=== PATIENT | female | born 1985 | race Hispanic/Latino ===

== ENCOUNTER 2017-01-05 21:06 | Emergency (ER) | payer SELFPAY ==
[2017-01-05 22:29] LABS: Bilirubin Negative (Negative); Blood, Urine Negative (Negative); Glucose, Urine (Dipstick) Negative (Negative); Ketone, Urine Negative (Negative); Nitrite Negative (Negative); Protein, Urine (Dipstick) Negative (Neg-Trace)
[2017-01-05 22:32] LABS: Bacteria/HPF 1+ HPF (None Seen); Hyaline Casts/LPF 0-3 HYALINE CAST LPF (0-3 Hyaline); RBC/HPF 0-3 HPF (0-3)
[2017-01-05 22:42] LABS: #Lymphocytes 2.5 thou/uL (1.20-3.40); #Monocytes 0.9 thou/uL (0.11-0.59); #Neutrophils 13.2 thou/uL (1.40-6.50); %Basophils 0.3 % (0.0-1.0); %Eosinophils 0.3 % (0.0-10.0); %Lymphocytes 14.8 % (21.0-51.0); %Monocytes 5.1 % (0.0-10.0); Hematocrit 40.1 % (36.0-47.0); Mean Platelet Volume 7.2 fL (7.4-10.4); Red Blood Cell (RBC) Count 4.33 mill/uL (4.20-5.40); White Blood Cell (WBC) Count 16.6 thou/uL (4.8-10.8)
[2017-01-05 23:02] LABS: ALT (SGPT) 75 U/L (8-55); AST (SGOT) 186 U/L (5-34); Alkaline Phosphatase 121 U/L (40-150); Anion Gap 13 mmol/L (10-20); BUN (Urea Nitrogen) 9 mg/dL (7.0-18.7); Bilirubin, Total 0.9 mg/dL (0.2-1.2); Calc. Creatinine Clearance 0 mL/min (70-130); Calcium 9.9 mg/dL (7.8-10.44); Carbon Dioxide 28 mmol/L (22-29); Chloride 101 mmol/L (98-107); Estimated GFR-MDRD Greater than 90; Globulin 3.3 g/dL (2.4-3.5); Lipase 7 U/L (8-78)
[2017-01-05] MEDS ORDERED: Ondansetron HCl/PF 4 MG/2 ML Vial ONE (23:55)
[2017-01-05] MEDS ORDERED: Morphine 2 MG/ML SYRINGE ONE (23:55)
[2017-01-06] MEDS ORDERED: Morphine 2 MG/ML SYRINGE ONE (01:58)
[2017-01-06] MEDS ORDERED: Ketorolac Tromethamine 30 MG/ML VIAL ONE (05:04)
--- NOTE | 2017-01-06 11:52 | CT ---
PRELIMINARY REPORT/[facility]/EMERGENCY AFTER-HOURS PROCEDURE: EXAM: CT Abdomen and Pelvis With Intravenous Contrast CLINICAL HISTORY: 31 years old, female; Pain; Abdominal pain; Localized; Right lower quadrant (rlq); Patient HX: Onset of abd pain upon awakening that has worsened throughout the day, localized to rlq. +nausea and food makes the pain worse. No trauma. No fevers. TECHNIQUE: Axial computed tomography images of the abdomen and pelvis with intravenous contrast. Coronal reformatted images were created and reviewed. CONTRAST: 94 mL of ISOVUE 370 administered intravenously. COMPARISON: No relevant prior studies available FINDINGS: LUNG BASES: No infiltrate or effusion. VASCULAR: Major vasculature is within normal limits. PERITONEAL : No free air or free fluid. GI: No hiatal hernia. The stomach is not sufficiently distended to exclude wall or fold thickening. Any gastric symptoms t o be correlated clinically. No appearance of bowel obstruction. There is no focal mesenteric inflammatory stranding. Folds withi n the distal ileum maybe slightly thickened, versus lack of distention artifact. Slight prominence o f jejunal folds. Although nonspecific, mild gastroenteritis would be a consideration. No mesenteric lymphadenopathy by size criteria. Scattered fecal material and gas within portions of the colon. No pericolonic inflammation. No evide nce of acute diverticulitis. The appendix is not conclusively identified but no secondary inflammation is seen at the cecal apex. What may represent the appendix does not fill with enteric contrast but no surrounding inflammatory stranding is seen. Correlation with clinical suspicion and laboratory findings would be helpful. HEPATOBILIARY, PANCREAS, SPLEEN: Sagittal hepatic length is 19.8 cm. 2.4 cm anterior hepatic lesion, may represent a hemangioma. The gallbladder has been removed. No pancreatic inflammation. Spleen not enlarged. ADRENALS, KIDNEYS, BLADDER, RETROPERITONEAL: Adrenals within normal limits. No hydronephrosis. Symmetric renal enhancement. No perinephric stranding or fluid. The urinary bladd er appears slightly thickwalled which could be correlated with any symptoms of cystitis but may be a rtifactual secondary to lack of distention. PELVIC: Slight heterogeneity of the uterus and cervix may be secondary to physiologic changes. Gas and trace amount of fluid noted within the vaginal fornices. This could be iatrogenic but could be correlated with any symptoms. Ovarian follicular changes are suspected, upto 2 centimeters on the right. If there are pelvic symptoms, consider ultrasound for more detailed assessment. MUSCULOSKELETAL: Small fat containing umbilical hernia. IMPRESSION: No free air, free fluid or focal mesenteric inflammation. The appendix is not conclusively identified. Gastrointestinal findings as discussed above could be correlated clinically. Slightly thickwalled appearance of the urinary bladder could be correlated clinically but may be art ifactual. 2.4 cm hepatic lesion, possibly a hemangioma. Other incidental findings discussed above. Thank you for allowing us to participate in the care of your patient. Dictated and Authenticated by: Steve Mares MD 01/06/2017 3:01 AM Central Time ([place] \T\ [place]) FINAL REPORT CT ABDOMEN AND PELVIS WITH CONTRAST: HISTORY: Lower abdominal pain. COMPARISON: None. FINDINGS/IMPRESSION: Findings and impression are concordant with the preliminary report. POS: RY
--- NOTE | 2017-01-06 12:29 | ULT ---
PRELIMINARY REPORT/[facility]/EMERGENCY AFTER-HOURS PROCEDURE: EXAM: US Pelvis, Transvaginal US Duplex Arterial/Venous of the Pelvis, Complete CLINICAL HISTORY: 31 years old, female; Pain; Other: Rlq pain x 2 days; Prior surgery; Surgery date: 6+ months; Surger y type: Tubal ligation TECHNIQUE: Real-time transvaginal pelvic ultrasound (complete) with image documentation. Transvaginal imaging w as used for better evaluation of the endometrium and adnexa. Real-time duplex ultrasound scan of the arterial and venous flow of the pelvis with color Doppler fl ow and spectral waveform analysis. COMPARISON: CT Abdomen Pelvis W Con 2017-01-06 02:13 FINDINGS: UTERUS: The uterus is anteverted, measuring 8.5 x 4 x 6 cm. Uterine echotexture is slightly heterogeneous. No discrete uterine fibroid is seen. Trace amount of fluid is noted within the cervix. PELVIS: No free fluid is seen within the pelvis. EC: The endometrial complex has a thickness of 11mm. No endometrial fluid is seen. Color Doppler interrogation of the endometrial lining was not done. ROV: The right ovary measures 3.1 x 2.1 x 3.7 cm. Within the right ovary there is a 2 x 1.5 x 1.9 cm follicle/cyst. There may be some anterior wall th ickening versus reverberation artifact. No internal Doppler flow is seen. Color Doppler flow is noted from within the right ovary. Arterial and venous spectral wave forms are noted from within the right ovary. ADEN: The left ovary measures 3.1 x 1.8 x 2.1 cm. Several small follicles are associated with the left ovary. Color Doppler flow is noted from within the left ovary. Arterial and venous spectral wave forms are noted from within the left ovary. IMPRESSION: 2 cm right ovarian follicle/cyst. No sonographic evidence for ovarian torsion. No free fluid. Thank you for allowing us to participate in the care of your patient. Dictated and Authenticated by: Steve Mares MD 01/06/2017 4:56 AM Central Time ([place] \T\ [place]) FINAL REPORT PELVIC TRANSVAGINAL ULTRASOUND: HISTORY: Emergency exam. Abdominal pain. COMPARISON: Abdomen CT from same day. FINDINGS: Real-time, neal scale, and color Doppler with spectral analysis of the pelvis was performed via a tr ansvaginal approach. Findings and impression are concordant with the preliminary report. POS: RY
== END 2017-01-06 05:28 | disposition home or self-care (01) ==
LOC: ERS 21:06
DX: R10.31 Right lower quadrant pain (principal)
CPT/HCPCS: 36415; 74177; 76856; 80053; 81003; 81015; 83690; 84703; 85025; 96374; 96375; 96376; J1885; J2270; J2405

== ENCOUNTER 2017-05-14 12:26 | Emergency (ER) | payer SELFPAY ==
--- NOTE | 2017-05-14 14:28 | RAD ---
LEFT SHOULDER THREE VIEWS: HISTORY: Left shoulder pain. Left arm pain. FINDINGS: No fracture, dislocation, or bony destruction is seen. POS: OFF
[2017-05-14] MEDS ORDERED: Ibuprofen 200 MG TAB ONE (14:38)
--- NOTE | 2017-05-14 15:42 | ULT ---
ULTRASOUND SOFT TISSUE OTHER 05/14/17 HISTORY: Pain. COMPARISON: None. FINDINGS: Real time neal scale evaluation of the left shoulder was performed in superficial soft tissues in the patient's area of vaccination. There is no fluid collection or mass appreciated. IMPRESSION: No ultrasonographic abnormality. POS: [facility]
== END 2017-05-14 16:05 | disposition home or self-care (01) ==
LOC: ERS 12:26
DX: M25.512 Pain in left shoulder (principal)
CPT/HCPCS: 76999

== ENCOUNTER 2020-12-21 09:53 | Emergency (ER) | payer BC ==
[2020-12-21] MEDS ORDERED: Lorazepam 2 MG/ML VIAL ONE ×2 (10:12→11:09)
[2020-12-21 10:29] LABS: #Basophils 0.1 thou/uL (0.0-0.2); #Eosinphils 0.1 thou/uL (0.0-0.7); #Monocytes 0.3 thou/uL (0.11-0.59); #Neutrophils 4.5 thou/uL (1.40-6.50); %Basophils 0.9 % (0.0-1.0); %Eosinophils 1.5 % (0.0-10.0); %Lymphocytes 37.6 % (21.0-51.0); %Monocytes 4.3 % (0.0-10.0); %Neutrophils 55.7 % (42.0-75.0); Hemoglobin 15.3 g/dL (12.0-16.0); Mean Corpuscular HGB CONC 33.6 g/dL (32.0-36.0); Mean Corpuscular Hemoglobin 31.7 pg (27.0-31.0); Mean Corpuscular Volume 94.3 fL (78.0-98.0); Mean Platelet Volume 7.7 fL (7.4-10.4); Platelet Count 370 thou/uL (130-400); RBC Distribution Width 11.7 % (11.5-14.5); Red Blood Cell (RBC) Count 4.85 mill/uL (4.20-5.40)
[2020-12-21 10:38] LABS: PTT 29.3 sec (22.9-36.1); Prothrombin Time 12.8 sec (12.0-14.7)
[2020-12-21 10:42] LABS: ALT (SGPT) 12 U/L (8-55); AST (SGOT) 18 U/L (5-34); Alkaline Phosphatase 85 U/L (40-110); Anion Gap 9 mmol/L (10-20); BUN (Urea Nitrogen) 12 mg/dL (7.0-18.7); Bilirubin, Total 0.5 mg/dL (0.2-1.2); Calc. Creatinine Clearance 0 mL/min (70-130); Calcium 10.4 mg/dL (7.8-10.44); Carbon Dioxide 29 mmol/L (22-29); Chloride 104 mmol/L (98-107); Globulin 3.4 g/dL (2.4-3.5); Glucose 104 mg/dL (70-105); Potassium 3.9 mmol/L (3.5-5.1); Protein, Total 8.4 g/dL (6.0-8.3); Sodium 138 mmol/L (136-145)
[2020-12-21 11:01] LABS: Lipase 21 U/L (8-78); Magnesium 1.8 mg/dL (1.6-2.6)
[2020-12-21] MEDS ORDERED: Iopamidol-370 76% 500 ML 1 ML ONE (11:05)
[2020-12-21 11:12] LABS: BHCG - Serum Negative (NEGATIVE); Pregs Control Background? CLEAR/WHITE (CLR/WHITE); Pregs Control Bar Appear? YES (CONTROL BAR)
[2020-12-21] MEDS ORDERED: Acetaminophen 500 MG TAB ONE (11:12)
[2020-12-21 11:17] LABS: Amphetamine Not Detected (NotDetected); Barbiturates Screen Not Detected (NotDetected); Benzodiazepine Screen Not Detected (NotDetected); Cocaine Metabolite Screen Not Detected (NotDetected); Methadone Not Detected (NotDetected); Methamphetamine Not Detected (NotDetected); Opiate Screen Not Detected (NotDetected); Oxycodone Screen Not Detected (NotDetected); Phencyclidine (PCP) Not Detected (NotDetected); THC/Cannabinoid Screen Not Detected (NotDetected); Tricyclic Screen Not Detected (NotDetected)
[2020-12-21 11:19] LABS: Thyroid Stimulating Hormone 1.3135 uIU/mL (0.35-4.94)
[2020-12-21 11:42] LABS: Acetaminophen Less than 6.0 mcg/mL (10.0-30.0); Alcohol Less than 10 mg/dL (Less than 10); Salicylate Less than 8.0 mg/dL (15.0-30.0)
[2020-12-21 11:50] LABS: Bilirubin Negative (Negative); Blood, Urine Negative (Negative); Clarity Clear (Clear); Glucose, Urine (Dipstick) Normal (Negative); Ketone, Urine Negative (Negative); Leukocyte Negative Leu/uL (Negative); Nitrite Negative (Negative); Protein, Urine (Dipstick) Negative (Neg-Trace); Specific Gravity, Urine 1.035 (1.002-1.036); Urobilinogen Normal mg/dL (Less than 2); pH, Urine 6.5 (5.0-9.0)
== END 2020-12-21 12:55 | disposition home or self-care (01) ==
LOC: ERS 09:53
DX: F41.0 Panic disorder [episodic paroxysmal anxiety] (principal)
CPT/HCPCS: 36416; 70450; 70496; 70498; 80053; 80306; 80307; 81003; 83690; 83735; 84443; 84484; 84703; 85025; 85610; 85730; 93005; 96374; J2060; Q9967

== ENCOUNTER 2022-05-21 14:21 | Outpatient (CLI) | payer OTHER ==
[2022-05-21 15:07] LABS: #Eosinphils 0.1 10x3/uL (0.0-0.5); #Monocytes 0.5 10x3/uL (0.0-1.1); #Neutrophils 5.1 10x3/uL (1.5-8.4); %Basophils 0.3 % (0.0-2.0); %Eosinophils 0.6 % (0.0-6.0); %Lymphocytes 27.8 % (18.0-47.0); %Monocytes 6.6 % (0.0-10.0); %Neutrophils 64.3 % (40.0-75.0); Hemoglobin 12.2 g/dL (12.0-15.5); Mean Corpuscular HGB CONC 32.8 g/dL (32.0-36.0); Mean Corpuscular Hemoglobin 30.3 pg (27.0-33.0); Mean Corpuscular Volume 92.5 fl (81.6-98.3); Mean Platelet Volume 9.9 fl (7.4-10.4); Platelet Count 332 10x3/uL (150-450); RBC Distribution Width 12.5 % (11.5-14.5); Red Blood Cell (RBC) Count 4.02 10x6/uL (3.90-5.03); White Blood Cell (WBC) Count 7.9 10x3/uL (3.5-10.5)
[2022-05-21 15:24] LABS: BHCG - Serum Negative (NEGATIVE); Pregs Control Background? CLEAR/WHITE (CLR/WHITE); Pregs Control Bar Appear? YES (CONTROL BAR)
[2022-05-21 15:26] LABS: Anion Gap 12 mmol/L (10-20); BUN (Urea Nitrogen) 14 mg/dL (7.0-18.7); Calc. Creatinine Clearance 0 mL/min (70-130); Calcium 9.3 mg/dL (7.8-10.44); Carbon Dioxide 26 mmol/L (22-29); Chloride 107 mmol/L (98-107); Estimated GFR 90; Glucose 98 mg/dL (70-105); Potassium 4.2 mmol/L (3.5-5.1); Sodium 141 mmol/L (136-145)
== END 2022-05-21 14:22 | disposition home or self-care (01) ==
LOC: LABBT 14:21
PROVIDERS: ATTEND Specialist
DX: Z01.812 Encounter for preprocedural laboratory examination (principal); K42.9 Umbilical hernia without obstruction or gangrene; K43.2 Incisional hernia without obstruction or gangrene
CPT/HCPCS: 80048; 84703; 85025

== ENCOUNTER 2022-05-25 08:53 | Day surgery (SDC) | payer OTHER ==
[2022-05-23 10:40] VITALS: BMI 24.1
[2022-05-25] MEDS ORDERED: Gabapentin 300 MG CAP ONE (09:13)
[2022-05-25] MEDS ORDERED: Acetaminophen 500 MG TAB ONE (09:13)
[2022-05-25] MEDS ORDERED: Ketorolac Tromethamine 30 MG/ML VIAL ONE (09:13)
[2022-05-25] MEDS ORDERED: Bupivacaine HCl 0.5%/Epinephrine 1:200,000/PF 30 ml Vial ONE (10:25)
[2022-05-25] MEDS ORDERED: Midazolam HCl 2 mg/2 ml Vial ONE (12:19)
[2022-05-25] MEDS ORDERED: Sodium Chloride 0.9% 100 ML ONE (12:21)
[2022-05-25] MEDS ORDERED: CEFAZOLIN 2 GM VIAL ONE (12:21)
[2022-05-25] MEDS ORDERED: fentaNYL PF 100 MCG/2 ML SYRINGE ONE ×2 (12:40→15:22)
[2022-05-25] MEDS ORDERED: SUGAMMADEX SODIUM 200 MG/2 ML VIAL ONE (12:40)
[2022-05-25] MEDS ORDERED: HYDROmorphone 0.5 MG/0.5 ML SYRINGE ONE (12:40)
[2022-05-25] MEDS ORDERED: PHENYLEPHRINE-NS 100 MCG/ML 10 ML SYRINGE ONE (12:46)
[2022-05-25] MEDS ORDERED: PROPOFOL 200 MG/20 ML VIAL ONE (12:46)
[2022-05-25] MEDS ORDERED: Rocuronium Bromide 10 MG/ML (10ML VIAL) ONE (12:46)
[2022-05-25] MEDS ORDERED: Lidocaine 1% PF 5 ML VIAL ONE (12:46)
[2022-05-25] MEDS ORDERED: NEOSTIGMINE 3 MG/3 ML SYR 3 MG/3 ML SYRINGE ONE (12:46)
[2022-05-25] MEDS ORDERED: Ondansetron PF 4 MG/2 ML Vial ONE ×2 (12:46→15:44)
[2022-05-25] MEDS ORDERED: Glycopyrrolate 0.2 MG/ML 5 ML SYRINGE ONE (12:46)
[2022-05-25] MEDS ORDERED: Dexamethasone 20 MG/5 ML VIAL ONE (12:46)
[2022-05-25] MEDS ORDERED: FENTANYL 50 MCG/ML 1 ML VIAL ONE ×2 (15:47→15:59)
[2022-05-25] MEDS ORDERED: Morphine 2 MG/ML VIAL ONE (17:16)
[2022-05-25] MEDS ORDERED: HYDROcodone/Acetaminophen 5/325 mg Tablet ONE (17:16)
== END 2022-05-25 18:09 | disposition home or self-care (01) ==
LOC: SDC 08:53
PROVIDERS: ATTEND Specialist
PROC: 8E0W4CZ Robotic Assisted Procedure of Trunk Region, Percutaneous Endoscopic Approach (ICD-10-PCS; principal; 2022-05-25)
PROC: 0WUF4JZ Supplement Abdominal Wall with Synthetic Substitute, Percutaneous Endoscopic Approach (ICD-10-PCS; principal; 2022-05-25)
DX: K42.9 Umbilical hernia without obstruction or gangrene (principal); K43.2 Incisional hernia without obstruction or gangrene; Z79.899 Other long term (current) drug therapy
CPT/HCPCS: C1781; J1100; J1170; J1885; J2250; J2272; J2405; J2704; J3010; J3490

== ENCOUNTER 2024-10-14 17:23 | Emergency (ER) | payer OTHER ==
[2024-10-14] MEDS ORDERED: Famotidine/PF 20 mg/2ml Vial ONE (17:55)
[2024-10-14 18:01] LABS: #Basophils 0.03 10x3/uL (0.0-0.2); #Eosinophils 0.14 10x3/uL (0.0-0.7); #Monocytes 0.62 10x3/uL (0.11-0.59); #Neutrophils 6.33 10x3/uL (1.40-6.50); %Basophils 0.3 % (0.0-1.0); %Eosinophils 1.4 % (0.0-10.0); %Lymphocytes 28.1 % (21.0-51.0); %Monocytes 6.2 % (0.0-10.0); %Neutrophils 63.6 % (42.0-75.0); Hematocrit 37.9 % (36.0-47.0); Hemoglobin 12.9 g/dL (12.0-16.0); Mean Corpuscular Hemoglobin 30.4 pg (27.0-31.0); Mean Corpuscular Volume 89.4 fL (78.0-98.0); Platelet Count 318 10x3/uL (130-400); Red Blood Cell (RBC) Count 4.24 mill/uL (4.20-5.40); White Blood Cell (WBC) Count 9.96 10x3/uL (4.8-10.8)
[2024-10-14 18:05] LABS: Pregnancy Test - Urine (BHCG) Negative (Negative); Pregu Control Background? CLEAR/WHITE (CLR/WHITE); Pregu Control Bar Appear? YES (CONTROL BAR)
[2024-10-14 18:08] LABS: Bacteria/HPF None Seen HPF (None Seen); CAUTI Indications for Culture Pelvic or flank pain; Glucose, Urine (Dipstick) Normal (Negative); Leukocyte Negative Leu/uL (Negative); Protein, Urine (Dipstick) Negative (Neg-Trace); Specific Gravity, Urine 1.022 (1.002-1.036); WBC/HPF 0-3 HPF (0-3)
[2024-10-14 18:10] LABS: Urine Culture Reflex No No
[2024-10-14 18:18] LABS: ALT (SGPT) 11 U/L (Less than 34); AST (SGOT) 24 U/L (11-34); Albumin 4.6 g/dL (3.1-4.5); Alkaline Phosphatase 77 U/L (40-110); Anion Gap 12 mmol/L (10-20); BUN (Urea Nitrogen) 11 mg/dL (7.0-18.7); Bilirubin, Total 0.3 mg/dL (0.3-1.2); Calc. Creatinine Clearance 0 mL/min (70-130); Calcium 9.3 mg/dL (7.8-10.44); Carbon Dioxide 27 mmol/L (22-29); Chloride 103 mmol/L (98-107); Globulin 3.0 g/dL (2.4-3.5); Glucose 100 mg/dL (70-105); Lipase 41 U/L (8-78); Potassium 4.0 mmol/L (3.5-5.1); Sodium 138 mmol/L (136-145)
[2024-10-14] MEDS ORDERED: Ketorolac Tromethamine 30 MG (1 mL) VIAL ONE (18:30)
== END 2024-10-14 21:00 | disposition home or self-care (01) ==
LOC: ERS 17:23
DX: K59.00 Constipation, unspecified (principal); Z55.6 Problems related to health literacy; Z79.899 Other long term (current) drug therapy; Z79.2 Long term (current) use of antibiotics
CPT/HCPCS: 80053; 81001; 81025; 83690; 85025; 96374; 96375; J1308; J1885; J2270; J2550

== ENCOUNTER 2025-01-22 15:51 | Outpatient (CLI) | payer OTHER | END 2025-01-22 15:52 | disposition home or self-care (01) | LOC: RAD 15:51 | PROVIDERS: ATTEND Family Medicine | DX: M54.50 Low back pain, unspecified (principal); M54.6 Pain in thoracic spine; M54.2 Cervicalgia; M47.812 Spondylosis without myelopathy or radiculopathy, cervical region | CPT/HCPCS: 72040; 72070; 72100 ==